=== PATIENT | male | born 2000 | race Caucasian/White ===

== ENCOUNTER 2022-04-23 23:08 | Emergency (ER) | payer MEDICAID ==
[~2022-04-23] VITALS: Ht 180.3 cm; Wt 117.9 kg
[2022-04-23 23:59] VITALS: BP 125/54
[2022-04-24] MEDS ORDERED: ONDANSETRON 4 MG ODT PO ONE (00:25)
[2022-04-24] MEDS ORDERED: NACL 0.9% 1,000 ML IV ONE (00:45)
[2022-04-24 00:47] LABS: BASOPHILS # (AUTO) 0.1 K/uL (0.00-0.22); BASOPHILS % (AUTO) 1.2 % (0.0-2.0); EOSINOPHILS # (AUTO) 0.2 K/uL (0-0.4); EOSINOPHILS % (AUTO) 2.8 % (0.0-4.0); HEMATOCRIT 50.1 % (36-52); HEMOGLOBIN 17.3 g/dL (12.0-18.0); LYMPHOCYTES # (AUTO) 1.5 K/uL (2.0-11.5); LYMPHOCYTES % (AUTO) 23.1 % (20.5-51.1); MEAN CORPUSCULAR HEMOGLOBIN 31 pg (27-31); MEAN CORPUSCULAR HGB CONC 35 g/dL (33-37); MONOCYTES # (AUTO) 0.6 K/uL (0.8-1.0); MONOCYTES % (AUTO) 10.1 % (1.7-9.3); NEUTROPHILS % (AUTO) 62.8 % (42.2-75.2); PLATELET COUNT (AUTO) 236 K/uL (140-450); RED BLOOD CELL COUNT(AUTO) 5.69 MIL/uL (4.20-6.10); RED CELL DISTRIBUTION WIDTH 12.9 % (11.6-13.7); WHITE BLOOD COUNT (AUTO) 6.4 K/uL (4.5-11.0)
--- NOTE | 2022-04-24 00:53 | NUR ---
PT TAKEN TO BED 9
--- NOTE | 2022-04-24 01:05 | NUR ---
X-Ray at bedside.
[2022-04-24 01:07] LABS: ALBUMIN 4.6 g/dL (3.4-5.0); ANION GAP 13.9 (8-16); CARBON DIOXIDE 28.6 mmol/L (21-32); CREATININE 1.1 mg/dL (0.6-1.3); POTASSIUM 3.5 mmol/L (3.5-5.1); TOTAL BILIRUBIN 0.5 mg/dL (0.0-1.0)
--- NOTE | 2022-04-24 01:33 | NUR ---
PT MOVED TO ER BED 13
[2022-04-24] MEDS ORDERED: EPINEPHrine 1 MG/ML AMP ONE (01:43)
--- NOTE | 2022-04-24 02:00 | NUR ---
epinephrine 1mg pulled under fide [place] for the pt hua snyder during emergency situation. hua snyder was not on tracker yet, in severe anaphylaxis.
[2022-04-24] MEDS ORDERED: ONDA-188 SL (03:03)
--- NOTE | 2022-04-24 03:14 | NUR ---
Patient discharged with v/s stable. Written and verbal after care instructions given and explained. Patient verbalized understanding. Ambulatory with steady gait. All questions addressed prior to discharge. Advised to follow up with PMD.
== END 2022-04-24 03:14 | disposition home or self-care (01) ==
LOC: MED 23:08
DX: R55 Syncope and collapse (principal); Z20.822 Contact with and (suspected) exposure to COVID-19
CPT/HCPCS: 36415; 71045; 80053; 83690; 85025; 87426; 87804; 93005; 96360; 99285; Q0092; Q0162; J0171

== ENCOUNTER 2022-09-03 23:49 | Emergency (ER) | payer MEDICAID, OTHER ==
[~2022-09-03] VITALS: Ht 182.9 cm; Wt 110.2 kg
[~2022-09-03 23:49] MED LIST: ONDA-188 SL
[2022-09-04 00:16] VITALS: BP 130/89
[2022-09-04] MEDS ORDERED: FAMO-92 PO (01:23)
[2022-09-04 01:30] VITALS: BP 130/89
--- NOTE | 2022-09-04 01:30 | NUR ---
Patient discharged with v/s stable. Written and verbal after care instructions given and explained. Patient alert, oriented and verbalized understanding of instructions. Ambulatory with steady gait. All questions addressed prior to discharge. ID band removed. Patient advised to follow up with PMD. Rx of FAMOTIDINE given. Patient educated on indication of medication including possible reaction and side effects. Opportunity to ask questions provided and answered. DX: GASTRITIS
== END 2022-09-04 01:30 | disposition home or self-care (01) ==
LOC: MED 23:49
DX: K29.00 Acute gastritis without bleeding (principal); R11.10 Vomiting, unspecified; Z79.899 Other long term (current) drug therapy
CPT/HCPCS: 99282